=== PATIENT | female | born 1990 | race American Indian/Alaskan Native ===

== ENCOUNTER 2019-04-17 08:55 | Emergency (ER) | payer BC ==
[2019-04-17 09:21] LABS: Basophils # (Auto) 0.1 K/mm3 (0.0-0.1); Basophils % (Auto) 1.3 % (0.0-1.8); Eosinophils # (Auto) 0.4 K/mm3 (0.0-0.4); Eosinophils % (Auto) 4.9 % (0.0-4.3); Hematocrit 38.5 % (30.3-42.9); Hemoglobin 13.1 gm/dl (10.1-14.3); Lymphocytes # (Auto) 1.4 K/mm3 (1.2-5.4); Lymphocytes % (Auto) 19.7 % (13.4-35.0); Mean Corpuscular HGB Conc 34 % (30-34); Mean Corpuscular Volume 91 fl (79-97); Monocytes # (Auto) 0.5 K/mm3 (0.0-0.8); Monocytes % (Auto) 7.4 % (0.0-7.3); Platelet Count 238 K/mm3 (140-440); Red Blood Count 4.22 M/mm3 (3.65-5.03); Red Cell Distribution Width 13.1 % (13.2-15.2)
--- NOTE | 2019-04-17 09:22 | Emergency Department Report ---
ED HPI - General Chief complaint: Vaginal Bleeding Stated complaint: [email or web address] Time Seen by Provider: 04/17/19 09:21 Source: patient Mode of arrival: Ambulatory Limitations: No Limitations - History of Present Illness Initial comments: Patient is a 29-year-old female that presents emergency room with abdominal cramping and vaginal bleeding that started this morning. Patient states she is not weeks . Patient states she is a 32 had an [facility] visit. Patient states she's had a confirmed ultrasound to confirm IUP. Patient states she is taking a vitamin. Patient states her cramps are intermittent. Patient states at this time her cramps are a 7 out of 10. Patient states they're better with rest and worse with movement. Patient denies recent sexual activity. Patient denies vaginal discharge. Patient denies dysuria. MD Complaint: abdominal pain, vaginal bleeding -: Sudden Location: pelvis, abdomen Radiation: none Severity: severe Severity scale (0 -10): 7 Quality: cramping Consistency: constant Improves with: rest Worsens with: movement Associated symptoms: vaginal bleeding, abdominal pain. denies: vaginal discharge, dysuria, headache, vision changes, malaise, dysparuenia, rash, seizure, shortness of breath, syncope, weakness Vaginal bleeding: heavy :: Yes Number of weeks : 9 OB History - Current : no complications OB History - Previous Pregnancies: no complications Pre-nithya care: followed by OB - Related Data : 2 Para: 1 Ab: 0 Allergies Allergy/AdvReac Type Severity Reaction Status Date / Time albuterol [From Combivent] Allergy Anaphylaxis Verified 04/17/19 09:00 ipratropium [From Combivent] Allergy Anaphylaxis Verified 04/17/19 09:00 ED Review of Systems ROS: Stated complaint: [email or web address].BLEEDING Other details as noted in HPI Constitutional: denies: chills, fever Eyes: denies: eye pain, eye discharge, vision change ENT: denies: ear pain, throat pain Respiratory: denies: cough, shortness of breath, wheezing Cardiovascular: denies: chest pain, palpitations Endocrine: no symptoms reported Gastrointestinal: abdominal pain. denies: nausea, diarrhea Genitourinary: denies: urgency, dysuria, discharge Musculoskeletal: denies: back pain, joint swelling, arthralgia Skin: denies: rash, lesions Neurological: denies: headache, weakness, paresthesias Psychiatric: denies: anxiety, depression Hematological/Lymphatic: denies: easy bleeding, easy bruising ED Past Medical Hx - Past Medical History Previous Medical History?: Yes Hx Asthma: Yes - Surgical History Past Surgical History?: No - Family History Family history: no significant - Social History Smoking Status: Never Smoker Substance Use Type: None ED Physical Exam - General Limitations: No Limitations General appearance: alert, in no apparent distress - Head Head exam: Present: atraumatic, normocephalic - Eye Eye exam: Present: normal appearance - ENT ENT exam: Present: mucous membranes moist - Neck Neck exam: Present: normal inspection - Respiratory Respiratory exam: Present: normal lung sounds bilaterally. Absent: respiratory distress - Cardiovascular Cardiovascular Exam: Present: regular rate, normal rhythm. Absent: systolic murmur, diastolic murmur, rubs, gallop - GI/Abdominal GI/Abdominal exam: Present: soft, tenderness, normal bowel sounds - Extremities Exam Extremities exam: Present: normal inspection - Back Exam Back exam: Present: normal inspection - Neurological Exam Neurological exam: Present: alert, oriented X3 - Psychiatric Psychiatric exam: Present: normal affect, normal mood - Skin Skin exam: Present: warm, dry, intact, normal color. Absent: rash ED Course Vital Signs 04/17/19 08:59 Temperature 98.0 F Pulse Rate 87 Respiratory 18 Rate Blood Pressure 134/77 O2 Sat by Pulse 100 Oximetry - Reevaluation(s) Reevaluation #1: I discussed all results with patient. Patient stable for discharge. Patient be discharged home. Patient agrees with plan of care. Patient given discharge instructions. Patient voiced understanding of discharge instructions. 04/17/19 11:12 ED Medical Decision Making - Lab Data Result diagrams: 04/17/19 09:08 - Radiology Data Radiology results: report reviewed ULTRASOUND OBSTETRIC INDICATION / CLINICAL INFORMATION: ABD PAIN. PREG. VAGINAL BLEEDING. Clinical Gestational Age (GA): 4 weeks 5 days TECHNIQUE: Transabdominal and Transvaginal. COMPARISON: None available. FINDINGS: GESTATIONAL SAC: Well-defined oval shape and intrauterine in location. YOLK SAC: No significant abnormality. EMBRYO/FETUS: No significant abnormality. - [place]-Rump Length = 2.3 cm = 9 weeks, 0 day(s). - Heart Rate, beats per minute (if present) = 187 ADNEXA: No significant abnormality. FREE FLUID: None. ADDITIONAL FINDINGS: None. IMPRESSION: 1. Single, living intrauterine with estimated sonographic age of 9 weeks, 0 day(s). 2. No acute sonographic abnormality. - Medical Decision Making Patient is a 29-year-old female that presents emergency room with complaints of vaginal bleeding and abdominal cramping. Patient is now weeks . Patient had an ultrasound which confirmed a 9 week IUP. Patient's finding consistent with a threatened miscarriage. Patient will be discharged home. Patient given discharge instructions. Patient's labs unremarkable. - Differential Diagnosis abdominal pain. Threatened miscarriage. Vaginal bleeding. Critical care attestation.: If time is entered above; I have spent that time in minutes in the direct care of this critically ill patient, excluding procedure time. ED Disposition Clinical Impression: Vaginal bleeding before 22 weeks gestation Qualifiers: Weeks of gestation: 9 weeks Qualified Code(s): Z3A.09 - 9 weeks gestation of Abdominal pain Qualifiers: Abdominal location: lower abdomen, unspecified Qualified Code(s): R10.30 - Lower abdominal pain, unspecified Disposition: DC- TO HOME OR SELFCARE Is pt being admited?: No Does the pt Need Aspirin: No Condition: Stable Instructions: Spontaneous Miscarriage (ED), Threatened Miscarriage (ED), (ED) Additional Instructions: Patient to follow-up with primary care in 2-3 days. Patient to follow-up with [facility] in 2-3 days. Patient to return to ER condition worsens. Patient take Tylenol when necessary for pain. Patient to rest. Patient increase water. Patient to avoid strenuous activity until cleared by [facility]. Patient to continue vitamins. Patient to avoid anything per vagina until cleared by [facility] Referrals: PRIMARY MD SO [Primary Care Provider] - 2-3 Days Time of Disposition: 11:16
--- NOTE | 2019-04-17 11:00 | Ultrasound Report ---
ULTRASOUND OBSTETRIC INDICATION / CLINICAL INFORMATION: ABD PAIN. PREG. VAGINAL BLEEDING. Clinical Gestational Age (GA): 4 weeks 5 days TECHNIQUE: Transabdominal and Transvaginal. COMPARISON: None available. FINDINGS: GESTATIONAL SAC: Well-defined oval shape and intrauterine in location. YOLK SAC: No significant abnormality. EMBRYO/FETUS: No significant abnormality. - [place]-Rump Length = 2.3 cm = 9 weeks, 0 day(s). - Heart Rate, beats per minute (if present) = 187 ADNEXA: No significant abnormality. FREE FLUID: None. ADDITIONAL FINDINGS: None. IMPRESSION: 1. Single, living intrauterine with estimated sonographic age of 9 weeks, 0 day(s). 2. No acute sonographic abnormality. Signer Name: Mago Greene MD Signed: 04/17/2019 10:56 AM Workstation Name: [id number]
--- NOTE | 2019-04-17 11:00 | Ultrasound Report ---
ULTRASOUND OBSTETRIC INDICATION / CLINICAL INFORMATION: ABD PAIN. PREG. VAGINAL BLEEDING. Clinical Gestational Age (GA): 4 weeks 5 days TECHNIQUE: Transabdominal and Transvaginal. COMPARISON: None available. FINDINGS: GESTATIONAL SAC: Well-defined oval shape and intrauterine in location. YOLK SAC: No significant abnormality. EMBRYO/FETUS: No significant abnormality. - [place]-Rump Length = 2.3 cm = 9 weeks, 0 day(s). - Heart Rate, beats per minute (if present) = 187 ADNEXA: No significant abnormality. FREE FLUID: None. ADDITIONAL FINDINGS: None. IMPRESSION: 1. Single, living intrauterine with estimated sonographic age of 9 weeks, 0 day(s). 2. No acute sonographic abnormality. Signer Name: Mago Greene MD Signed: 04/17/2019 10:56 AM Workstation Name: [id number]
[2019-04-17 11:04] LABS: Bacteria,Urine 1+ /HPF (Negative); Bilirubin,Urine NEG (Negative); Blood,Urine SM (Negative); Color,Urine Yellow (Yellow); Mucus,Urine FEW /HPF; Protein,Urine <15 mg/dL mg/dL (Negative); Urobilinogen,Urine < 2.0 mg/dL (<2.0)
[2019-04-17 11:56] VITALS: BP 106/72
== END 2019-04-17 11:42 | disposition home or self-care (01) ==
LOC: ED 08:55
DX: O20.9 Hemorrhage in early pregnancy, unspecified (principal); O26.891 Other specified pregnancy related conditions, first trimester; R10.30 Lower abdominal pain, unspecified; Z3A.09 9 weeks gestation of pregnancy
CPT/HCPCS: 36415; 76801; 76817; 81001; 84702; 84703; 85025; 86900; 86901